=== PATIENT | male | born 1970 | race Caucasian/White ===

== ENCOUNTER 2017-10-13 13:59 | Inpatient (IN) ==
[2017-10-13] MEDS ORDERED: Nitroglycerin 1,000 MCG/10 ML VIAL IV ONE (15:55)
[2017-10-13] MEDS ORDERED: *HR* Heparin 10,000 UNIT/10 ML VIAL ONE (15:55)
[2017-10-13] MEDS ORDERED: Heparin 1,000 UNITS/500 mL 500 ML ONE (15:55)
[2017-10-13] MEDS ORDERED: 0.9 % Sodium Chloride 1,000 ML ONE ×2 (15:55→15:57)
--- NOTE | 2017-10-13 15:59 | Cardiology Consult Note ---
Date of Encounter: 10/13/17 Time of Encounter: 15:55 Assessment and Plan (1) NSTEMI (non-ST elevated myocardial infarction) Current Visit: No Status: Acute History, ECG, troponin measurements consistent with a NSTEMI. Patient placed on ACS therapy, including aspirin, heparin drip, Plavix 600 mg PO x1 nitroglycerin at outside ER. Continue ACS therapy. Start Risks, benefits, and alternatives to a cardiac catheterization discussed. Patient voiced understanding and wishes to proceed. Check TTE. Risk factor modification emphasized, especially complete tobacco cessation. Further recommendations to follow. Discussion w patient/family: The assessment and plan as outlined above was discussed with the patient and/or family members who expressed understanding and agreement. All questions were answered. Thank you for involving us in the care of your patient. Please call with any questions. History of Present Illness Consult date: 10/13/17 Requesting physician: Hailey Valencia Consult reason: NSTEMI Chief complaint: Chest discomfort History of present illness: 47-year-old male who reports intermittent chest discomfort for the past one week. Describes episodes lasting anywhere from 30 minutes to one hour. Symptoms resolved with rest. At 1:00 this morning, patient reports sudden intense chest pressure. Symptoms were persistent, unrelenting. He went to local ER. ECG demonstrates ST-T wave changes suggestive of inferior ischemia. Troponin elevated, 4.36. Prior to medical therapy, 8 out of 10 chest pain reported. Patient now reports 2 out of 10 chest discomfort. Past Med Surg Social Fam HX - Past Medical History Medical history: no medical history Psychiatric history: no psych history - Social History Smoking Status: Current every day smoker Smokeless Tobacco Status: No Alcohol use: occasionally Drug use: none Medications and Allergies 3 Allergy/AdvReac Type Severity Reaction Status Date / Time No Known Allergies Allergy Verified 10/13/17 12:07 All Systems Review: A 10-system review of systems was performed and is negative for pertinent findings except as documented above in the HPI. - Cardiovascular Cardiovascular: as per HPI, chest pain at rest, chest pain with exertion, dyspnea at rest Physical Examination General: Conversant, No Apparent Distress HEENT: Atraumatic, Normocephaly, Mucus Membranes Moist Neck: No JVD, Normal carotid pulses Cardiac: Reg Rate and Rhythm, Normal S1 and S2, No Murmur Lungs: Normal Breath Sounds, No Wheeze, Rales, Rhonchi Neuro: Alert and responsive, No focal deficits noted Abdomen: Soft, Non-Tender Skin: No rashes noted on visualized skin Musculoskeletal: No Chest Wall Tenderness Extremities: No Clubbing, No Cyanosis, No Edema Results - EKG Interpretation EKG results cardiology: personally reviewed Consult Discharge Plan - Plan Referrals: NONE,PCP [Primary Care Provider] -
--- NOTE | 2017-10-13 16:01 | Pre-Sedation Evaluation ---
Pre-sedation evaluation - Pre-sedation checklist Date of procedure: 10/13/17 Procedure: C H&P (including ROS) documented in medical record: Yes Previous reaction to sedatives/anesthetics: No Dietary Status: NPO after Midnight Airway Assessment: Patient can open mouth completely, TMJ function normal, Micrognathia (under-bite, receding chin) absent, Neck with adequate range of motion Dentition: No loose teeth or bridges Possible difficult airway: No ASA Classification *see protocol: CLASS II-Mild systemic disease Plan of Care: Pt appropriate candidate for procedure/moderate/conscious sedation , Risks/benefits of procedure/sedation discussed w/ patient/family
[2017-10-13] MEDS ORDERED: *HR* Heparin 5,000 UNIT/ML VIAL IVP PRN ×2 (16:13)
[2017-10-13] MEDS ORDERED: *HR* Heparin 5,000 UNIT/ML VIAL IVP ONE (16:13)
[2017-10-13] MEDS ORDERED: Heparin 25,000 UNIT/500 ML D5W 25,000 UNIT/500 ML BAG IVC SCH (16:15)
[2017-10-13] MEDS ORDERED: *HR* FentaNYL (PF) 100 MCG/2 ML VIAL ONE (16:32)
[2017-10-13] MEDS ORDERED: *HR* Midazolam HCl 2 MG/2 ML VIAL ONE (16:32)
[2017-10-13] MEDS ORDERED: Naloxone 0.4 MG/ML INJ IVP PRN (16:35)
--- NOTE | 2017-10-13 16:45 | Internal Med History&Physical ---
Date of Encounter: 10/13/17 Time of Encounter: 16:42 Assessment and Plan (1) NSTEMI (non-ST elevated myocardial infarction) Current visit: No Status: Acute Cardiology. Started on. Aspirin, Plavix, statin, and beta lisa have all been started. Echo pending. Plus/minus Left heart catheterization per cardiology. Continue telemetry. (2) Elevated d-dimer Current visit: Yes Status: Acute Likely secondary to cardiac etiology. If his cardiac workup comes back unremarkable, we will have to check a CTA of chest to rule out PE. Patient is not hypoxic and is not requiring oxygen. (3) Febrile illness Current visit: Yes Status: Acute Check viral respiratory panel. Chest x-ray with no infiltrates. Check urinalysis. Influenza is negative. We will check blood cultures. (4) Pulmonary nodules Current visit: Yes Status: Acute We will need to have a dedicated CT once acute issues resolve. This can possibly be done as an outpatient. (5) DVT prophylaxis Current visit: Yes Status: Acute Heparin drip Internal Medicine - H&P: HPI Chief complaint: Chest pain Admitted From: Direct Admit Plans for Post Hospital Care: Home History of present illness: Mr. Pereira is a 47 year old male with no past medical history who had presented from [facility] with complaints of chest pain. Apparently the patient has been dealing with some cough, congestion, and fevers for the last 5 days or so. Last night he experienced chest pain that was substernal with no radiation. He related that as 7 out of 10 in intensity. In tab 1 to [facility] where his workup showed elevated troponins at 4.36. CK was 966. Rest of his workup was mostly unremarkable other than elevated d-dimer's. His chest x-ray was negative. He was checked for the flu antigen was negative. EKGs are some ST and T-wave changes in the inferior leads. Cardiology was consulted and the patient was started on a heparin drip upon arrival. Patient currently denies any fever chills nausea vomiting shortness of breath chest pain and abdominal pain uterine symptoms or neurological symptoms. His chest pain had resolved with sublingual nitroglycerin as well as morphine at the outlying facility. Past Med Surg Social Fam HX - Past Medical History Medical history: no medical history Psychiatric history: no psych history - Past Surgical History Surgical History: no surgical history - Social History Smoking Status: Current every day smoker Smokeless Tobacco Status: No Alcohol use: occasionally Drug use: none - Family History Father Living Status: Age at : 66 Hx Family Cardiac Disorders: Yes Hx Family Cancer: Yes Hx Family Endocrine Disorder: Yes Internal Medicine - H&P: Meds 3 Allergy/AdvReac Type Severity Reaction Status Date / Time No Known Allergies Allergy Verified 10/13/17 12:07 All Systems PM: A 10-system review of systems was performed and is negative for pertinent findings except as documented above in the HPI. Review of systems: All systems reviewed are negative except for what is mentioned in history of present illness - Constitutional Vitals: Temp Pulse Resp BP 98.3 F 72 14 120/75 10/13/17 16:05 10/13/17 16:05 10/13/17 16:05 10/13/17 16:05 Exam: GEN: NAD HEENT: AT, NC, No cyanosis, oral mucosa is moist, No JVD Lymphatics: No lymphadenoapthy Eyes: Extrocular muscles intact, anicteric CVS:RRR. S1, S2, No m/r/g RESP: CTAB ABD: Soft, NT, ND, +BS EXT: No edema, No rashes, 2+ DP NEURO: Nonfocal, CN II-XII intact, No focal motor or sensory deficits Psych: Cooperative, Not anxious or depressed
[2017-10-13] MEDS ORDERED: Ondansetron 4 MG/2 ML VIAL IVP PRN (17:15)
[2017-10-13] MEDS ORDERED: Nitroglycerin 0.4 MG TAB.SUBL SL PRN (17:15)
--- NOTE | 2017-10-13 17:19 | Invasive Diagnostic Lab Proc ---
Name: Milton Pereira Date of Study: 10/13/2017 Date: 1970 Ht: 70.0in Medical Record#: [id number] Age: 47 Wt: 165.35lb Gender: Male BSA: 1.93 Order #: [id number] BMI: 23.72 Physicians Procedure Physician: Kandi Sterling MD, [facility] Referring MD: Referring MD: Staff Name Position Time In [facility], [facility] RT (R) Scrub 04:31 PM Mariela Powell RN Clinical Staff Anesthesiologist 04:31 PM Michelle Loco RT (R) Monitor 04:31 PM Indications Indication Non-Stemi Procedures Performed Procedure L HRT ARTERY/VENTRICLE ANGIO PRQ CARD DESIREE STENT W/ANGIO 1 VSL Pre-Procedure Checklist Informed consent is complete signed and on chart. H&P is on chart. ID band is on and ID verified with patient. Patient NPO for procedure The procedure was described for the patient and questions were answered. Blood Pressure: 130/80 ECG is on chart. Rhythm: NSR Plan of Care Patient will tolerate the procedure without complications. Adequate level of comfort will be maintained. Hemodynamics will remain stable Patient will recover from procedure without complications. Respiratory function will be maintained. Cardiac rhythm will remain stable. Patient temperature will be maintained. Patient and/or family have verbalized understanding of the procedure. Patient Education Chief Complaint/Reason for Test: Cardiac Cath Developmental Category: Adult (18-64 years) Developmentally Appropriate for Age: Yes Learning Barriers: None Education Needs: Procedure Education Method: Verbal Information Taught: Cardiac Cath Educational Evaluation: Able to repeat information Intravenous Access Time IV Size Location DC'd Fluid/Drip Rate Units RN 04:28 PM 18g 1 09/17" Patent On Arrival Rt Antecubital 0.9NaCl 25 ml/hr Allergies No Known Allergies Vital Signs Time BP (mmHg) HR (bpm) O2 Sat. RR (bpm) LOC 04:29 PM 130 / 80 78 98 % 20 5 = Fully awake and oriented or at pre-proc level 04:36 PM / % 4 = Oriented but drowsy 04:36 PM / % 4 = Oriented but drowsy 04:31 PM 130 / 80 65 98 % 27 04:35 PM 133 / 87 77 95 % 14 04:40 PM 119 / 80 69 97 % 15 04:45 PM 118 / 75 71 95 % 30 04:50 PM 120 / 83 81 95 % 29 04:55 PM 112 / 74 67 95 % 15 05:00 PM 90 / 44 66 94 % 24 05:01 PM 94 / 54 75 93 % 27 05:05 PM 105 / 59 66 94 % 17 04:51 PM / % 4 = Oriented but drowsy Procedural Medications Time Medication Dose Units Method Given By 04:34 PM Oxygen 2 L/min nasal cannula Mariela Powell RN 04:34 PM Versed 2 mg Intravenous Mariela Powell RN 04:34 PM Fentanyl 50 mcg Intravenous Mariela Powell RN 04:41 PM Lidocaine 2% 10 ml Subcutaneous Kandi Sterling MD, [facility] 04:48 PM Angiomax 0.75mg/kg bolus: 11 ml Intravenous Mariela Powell RN 04:48 PM Angiomax 1.75mg/kg/hr: 26 ml Intravenous Mariela Powell RN 04:58 PM Nitroglycerin 200 mcg Intracoronary Kandi Sterling MD, [facility] ASA Classification: CLASS II- Mild systemic disease (i.e. well-controlled diabetes, hypertension, asthma, cigarette smoking) Edward Score Preprocedure Postprocedure Activity 2- Moves 4 extremities sustained head lift Activity 2- Moves 4 extremities sustained head lift Circulation 2- SBP +/= 20 points of pre-anesthetic level Circulation 2- SBP +/= 20 points of pre-anesthetic level Consciousness 2- Awake and alert oriented x 3 Consciousness 2- Awake and alert oriented x 3 O2 Saturation 2- Able to maintain O2 satruation of 92% on room air O2 Saturation 2- Able to maintain O2 satruation of 92% on room air Respiratory 2- Able to deep breathe and cough well Respiratory 2- Able to deep breathe and cough well Total Score 10 Total Score 10 Contrast Agent: Isovue Diagnostic Contrast: 103 ml Total Contrast: 103 ml Fluoro Dose: 323 mGy Procedure Log Time Note Enter By 04:29 PM CathStat 04:29 PM Vitals capture started with the following parameters, Patient=Adult, Interval=5 min, Initial Hfroxvmn=257 mmHg, Deflation Rate=5 mmHg, Cuff placed on Right Arm 04:30 PM Recorded ECG: HR=66 Condition=Condition 1 04:31 PM [facility] geochemical laboratory technician [email or web address] PM HR=65 bpm, SWJB=547/80 mmhg, SpO2=98.0 %, Resp=27 B/min, Comment=NSR 04:31 PM Marleni Erickson RT (R) Position: Scrub Time in: 16:31 [email or web address] 04:31 PM Mariela Powell RN Position: Clinical Staff Anesthesiologist Time in: 16:31 [email or web address] 04:31 PM Michelle Loco RT (R) Position: Monitor Time in: 16:31 [email or web address] 04:33 PM Patient charges- Angio tray pack, Navilyst 3mm J, Pulse Oximetry and ACIST tubing and transducer [email or web address] 04:33 PM Case Delayed no [email or web address] 04:33 PM Hair removed from procedure site in holding area using clippers. Bilateral groin prepped with Chloraprep by Mariela Powell RN, safety strap applied then patient was draped. Skin intact. [email or web address] 04:33 PM Physician arrived 16:33 [email or web address] 04:33 PM ASA Class CLASS II- Mild systemic disease (i.e. well-controlled diabetes, hypertension, asthma, cigarette smoking) [email or web address] 04:33 PM Meet and greet completed [email or web address] 04:33 PM Sign in performed according to hospital policy. [email or web address] 04:34 PM Procedure start 16:33 [email or web address] 04:34 PM Time: 16:34 Oxygen on at 2 L/min per nasal cannula by Mariela Powell RN [email or web address] 04:34 PM Time: 16:34 Versed 2 mg Intravenous Given by Mariela Powell RN [email or web address] 04:34 PM Time: 16:34 Fentanyl 50 mcg Intravenous Given by Mariela Powell RN [email or web address] 04:35 PM HR=77 bpm, BZYK=377/87 mmhg, SpO2=95.0 %, Resp=14 B/min, Comment=NSR 04:36 PM Time: 16:36 Patient comfortable and pain free: Yes [email or web address] 04:36 PM Time: 16:36LOC: 4 = Oriented but drowsy [email or web address] 04:37 PM Pressure channel 1 zeroed. 04:40 PM HR=69 bpm, DBWT=173/80 mmhg, SpO2=97.0 %, Resp=15 B/min, Comment=NSR 04:40 PM Time out performed according to hospital policy [email or web address] 04:41 PM Time: 16:41 10 ml Lidocaine 2% to right groin Subcutaneous Given by Kandi Sterling MD, [facility] [email or web address] 04:42 PM Access obtained by percutaneous puncture. 5Fr 10cm Terumo [place] sheath placed in right Femoral artery. [id number] [email or web address] 04:42 PM 0.035 145cm Navilyst 3mmJ wire [id number] [email or web address] 04:42 PM 5Fr FL 4 catheter inserted over the wire DN [email or web address] 04:43 PM LCA angiography performed in multiple views. [email or web address] 04:44 PM Recorded Pressure: Ao, HR=73, Condition=Condition 1 (Aorta) Ao 113/84/98 04:45 PM Lesion found in Proximal Circumflex. Pre Stenosis: 100 Pre TORREY Flow: 0: No Flow/No perfusion [email or web address] 04:45 PM HR=71 bpm, LOGI=122/75 mmhg, SpO2=95.0 %, Resp=30 B/min, Comment=NSR 04:45 PM Catheter removed [email or web address] 04:45 PM 5Fr FR 4 catheter inserted over the wire DN [email or web address] 04:46 PM RCA angiography performed in multiple views. [email or web address] 04:46 PM Recorded Pressure: Ao, HR=69, Condition=Condition 1 (Aorta) Ao 77/57/67 04:46 PM Catheter removed [email or web address] 04:47 PM Sheath exchanged for a 6 Fr 11 cm Cordis Elizabeth sheath [id number] [email or web address] 04:47 PM Inflation device was opened. [email or web address] 04:47 PM 6Fr XB LAD 3.5 [place] Bright-Tip guide catheter was used to cannulate the PCI vessel successfully. reused? No [email or web address] 04:48 PM .014 Prowater 180cm guide wire across target lesion- successful. reused? No [email or web address] 04:48 PM Time: 16:48 Angiomax 0.75mg/kg bolus: 11 ml Intravenous Given by Mariela Powell RN Chappell pump [email or web address] 04:48 PM Time: 16:48 Angiomax 1.75mg/kg/hr: 26 ml Intravenous Given by Mariela Powell RN Chappell pump [email or web address] 04:49 PM Recorded Pressure: Ao, HR=82, Condition=Condition 1 (Aorta) Ao 124/81/100 04:50 PM HR=81 bpm, ZMMH=898/83 mmhg, SpO2=95.0 %, Resp=29 B/min, Comment=NSR 04:51 PM Time: 16:36 Patient comfortable and pain free: Yes [email or web address] 04:51 PM Time: 16:36LOC: 4 = Oriented but drowsy [email or web address] 04:51 PM 2.0 mm x 12 mm Emerge Monorail balloon across target lesion- successful. reused? No [email or web address] 04:52 PM Balloon inflated @ 10 ubaldo for 20 seconds [email or web address] 04:52 PM Balloon inflated @ 10 ubaldo for 20 seconds [email or web address] 04:54 PM Balloon inflated @ 10 ubaldo for 20 seconds [email or web address] 04:54 PM Recorded Pressure: Ao, HR=69, Condition=Condition 1 (Aorta) Ao 107/78/92 04:54 PM Balloon catheter removed intact. [email or web address] 04:55 PM HR=67 bpm, DXFT=197/74 mmhg, SpO2=95.0 %, Resp=15 B/min, Comment=NSR 04:55 PM 2.75mm x 32mm Synergy drug-eluting stent across target lesion- successful Lot #[id number] [email or web address] 04:56 PM Stent deployed @ 12 ubaldo for 30 seconds [email or web address] 04:58 PM Stent delivery system removed intact. [email or web address] 04:58 PM Time: 16:58 Nitroglycerin 200 mcg Intracoronary Given by Kandi Sterling MD, [facility] [email or web address] 04:59 PM Guide wire removed intact. [email or web address] 04:59 PM Guide catheter removed intact. [email or web address] 04:59 PM 5Fr Pigtail catheter inserted over the wire [facility] [email or web address] 04:59 PM Catheter selectively placed in left ventricle [email or web address] 04:59 PM Bolus angiogram of left Ventricle complete: 10 ml/sec for a total of 20 mls [email or web address] 05:00 PM HR=66 bpm, NIBP=90/44 mmhg, SpO2=94.0 %, Resp=24 B/min, Comment=NSR 05:01 PM Pressure channel 1 zeroed. 05:01 PM Recorded Pressure: LV, HR=68, Condition=Condition 1 (Left Ventricle) LV 92/0/10 05:01 PM NIBP STAT measurement started. 05:01 PM Recorded Pressure: LV, Ao, HR=70, Condition=Condition 1 (Left Ventricle) LV 70/6/12, (Aorta) Ao ?/?/? 05:01 PM HR=75 bpm, NIBP=94/54 mmhg, SpO2=93.0 %, Resp=27 B/min, Comment=NSR 05:01 PM Recorded Pressure: Ao, HR=67, Condition=Condition 1 (Aorta) Ao 71/54/63 05:02 PM Catheter removed [email or web address] 05:02 PM Bolus angiogram of right Femoral complete: 4 ml/sec for a total of 7 mls [email or web address] 05:03 PM Patient already loaded on Plavix. [email or web address] 05:05 PM Procedure completed at 17:05 [email or web address] 05:05 PM HR=66 bpm, PFHP=764/59 mmhg, SpO2=94.0 %, Resp=17 B/min, Comment=NSR 05:05 PM Sign out completed: Radiation Dose 323.24 mGy Fluoro Time: 4.4 Isovue 370 - 200ml contrast 103 ml given by Kandi Sterling MD, FACC. Complications: NoneCardiac Rehab Consult needed: YesConfirmed administered medications: Yes [email or web address] 05:07 PM Time: 16:51LOC: 4 = Oriented but drowsy [email or web address] 05:07 PM Time: 16:51 Patient comfortable and pain free: Yes [email or web address] 05:11 PM Isovue 370 - 200ml,1 Bottle(s) used. [email or web address] 05:11 PM Sheath left in place to be pulled on floor/holding areaV+Pad [email or web address] 05:11 PM Estimated Blood Loss: minimal [email or web address] 05:11 PM Post ECG NSR [email or web address] 05:11 PM Post Blood Pressure 105/59 [email or web address] 05:11 PM 17:11 Post Pulses Bilateral DP & PT 2+ [email or web address] 05:11 PM Information taught Cardiac Cath and PCI [email or web address] 05:12 PM Education needs Procedure, Plan of Care, and Disease Process [email or web address] 05:12 PM Learning barriers :None [email or web address] 05:12 PM Education Methods Verbal [email or web address] 05:12 PM Education evaluation Able to repeat information [email or web address] 05:12 PM Site status No bleeding/hematoma - Rt Groin as reported by Sites, Marleni RT (R) at 17:12 [email or web address] 05:12 PM Opsite applied [email or web address] 05:13 PM Report given to Missy NOEL Pt taken to 2N Room #2. 17:13 [email or web address] 05:13 PM Delay to floor No [email or web address] 05:13 PM Family placed in not available. [email or web address] 05:13 PM Complications: None [email or web address] 05:13 PM Fluoro Time: 4.4 [email or web address] 05:13 PM Isovue 370 - 200ml contrast 103 ml given by Kandi Sterling MD, [facility]. [email or web address] 05:13 PM Radiation Dose 323.24 mGy [email or web address] 05:13 PM Patient out of room: 17:13 [email or web address] Complications Complication None None Hemodynamics Pressures Site Systolic/A Wave Diastolic/V Wave Mean AO 113 84 98 AO 77 57 67 AO 124 81 100 AO 107 78 92 LV 92 0 10 LV 70 6 12 AO AO 71 54 63 Post Procedure Information Blood Pressure: 105/59 mmHg Rhythm: NSR Post procedural instructions were not given Site Checks Time Location Status Staff Sheath In? Note 05:12 PM Rt Groin No bleeding/hematoma Sites, Marleni RT (R) Pulses Time Site Pre-Procedure Post-Procedure Note 10/13/2017 4:28:00 PM Bilateral DP & PT 2+ 2 5:11:00 PM Bilateral DP & PT 2+ Updated by Michelle Loco RT(R) on 10/13/2017 5:14:10 PM electronically signed on 10/13/2017 5:14:38 PM with status of Final
[2017-10-13] MEDS: 0.9 % Sodium Chloride 1,000 ML IVC SCH ×2 (18:35→23:50)
[2017-10-13 19:09] LABS: Hematocrit 41.4 % (37.5-50.1); Hemoglobin 13.7 g/dL (12.9-16.9); Mean Corpuscular HGB Conc 33.1 g/dL (31.6-35.5); Mean Corpuscular Hemoglobin 31.3 pg (28.0-33.3); Mean Corpuscular Volume 94.5 fL (83.0-100.0); Mean Platelet Volume 10.3 fL (9.4-12.4); Platelet Count 231 K/mcL (140-400); Red Blood Count 4.38 M/mcL (4.19-5.50); Red Cell Distribution Width 13.6 % (11.5-14.5)
[2017-10-13 19:15] LABS: INR 1.3; Prothrombin Time 14.1 Seconds (9.4-12.1)
[2017-10-13 19:16] LABS: Hemoglobin A1C 5.2 %
[2017-10-13 19:17] LABS: Activated Partial Thrombo Time 58.5 Seconds (26.0-36.0)
[2017-10-13 19:43] LABS: Chol/HDL Ratio 5.4 (0-4.9)
[2017-10-14 01:07] LABS: Basophils % 0.2 %; Eosinophils % 0.4 %; Hematocrit 37.8 % (37.5-50.1); Hemoglobin 12.6 g/dL (12.9-16.9); Immature Granulocytes % 0.5 % (0-4); Lymphocytes % 21.8 %; Mean Corpuscular HGB Conc 33.3 g/dL (31.6-35.5); Mean Corpuscular Hemoglobin 31.4 pg (28.0-33.3); Mean Corpuscular Volume 94.3 fL (83.0-100.0); Mean Platelet Volume 10.3 fL (9.4-12.4); Monocytes % 9.7 %; Platelet Count 192 K/mcL (140-400); Red Blood Count 4.01 M/mcL (4.19-5.50); Red Cell Distribution Width 13.8 % (11.5-14.5); Segmented Neutrophils % 67.4 %
[2017-10-14 01:08] LABS: Lymphocytes # 1.9 K/mcL (0.6-4.6); Monocytes # 0.8 K/mcL (0.0-1.3); Neutrophils # 5.7 K/mcL (1.6-8.9)
[2017-10-14 02:22] LABS: BUN/Creatinine Ratio 14 (6-26); Blood Urea Nitrogen 10 mg/dL (6-20); Calcium 8.3 mg/dL (8.6-10.3); Carbon Dioxide 25 mEq/L (23-29); Chloride 109 mEq/L (98-107); Glucose 129 mg/dL (70-105); Magnesium 2.1 mg/dL (1.6-2.6); Osmolality,Calculated 283 (280-300); Potassium 4.2 mEq/L (3.5-5.1); Sodium 136 mEq/L (136-145); eGFR For African Americans > 60 (> 60); eGFR For Non-African Americans > 60 (> 60)
[2017-10-14 05:24] LABS: Bilirubin,Urine Negative (Negative); Blood,Urine Negative (Negative); Clarity,Urine Clear (Clear); Color,Urine Yellow (Yellow); Glucose,Urine (UA) Normal (Normal); Ketones,Urine Negative (Negative); Leukocyte Esterase,Urine Negative (Negative); Nitrite,Urine Negative (Negative); Protein,Urine Negative (Neg-Trace); Specific Gravity,Urine > 1.030 (1.010-1.025); Urobilinogen,Urine Normal (Normal)
[2017-10-14] MEDS ORDERED: Metoprolol XL (24 HR) Succ 25 MG TAB.ER.24H PO SCH ×2 (09:00)
[2017-10-14] MEDS ORDERED: Aspirin 81 MG TAB.CHEW PO SCH (09:00)
--- NOTE | 2017-10-14 09:19 | Cardiology Progress Note ---
Date of Encounter: 10/14/17 Time of Encounter: 09:16 Assessment and Plan (1) NSTEMI (non-ST elevated myocardial infarction) Current Visit: Yes Status: Acute Troponins 4.36, >73 x 2. C yesterday revealed acute [place] due to acute thrombotic occlusion of proximal Cx. Double vessel coronary artery disease. The left ventricle is normal and has normal contractility EF 55%. Patient had successful PTCA/Drug-Eluting Stent placement in the proximal Circ. LMCA 15% stenosis, 25% pLAD, 30% mLAD, 50% pRCA mRCA and dRCA stenosis. Pt denies chest pain or dyspnea overnight. DAPT (ASA and Plavix) uninterrupted x 1 year. Pt verbalizes understanding. Continue Statin. BP will currently not tolerate BB or ACEi. Re-evaluate as outpt if BP will tolerate low dose BB. Right femoral access site healing well. No bleeding or hematoma. Mild ecchymosis noted. Restrictions discussed. Lifestyle modification discussed. Echo ordered, but not yet completed. Cardiac rehab ordered. Cardiology signing off. Reconsult PRN. Will coordinate outpt follow-up in 1 week. (2) CAD (coronary artery disease) Current Visit: Yes Status: Acute As above, s/p PCI. ASA, Plavix, Statin. BP currently will not tolerate BB or ACEi. Qualifiers: Coronary Disease-Associated Artery/Lesion type: [place] artery [place] vs. transplanted heart: [place] heart Associated angina: angina presence unspecified Qualified Code(s): I25.10 - Atherosclerotic heart disease of [place] coronary artery without angina pectoris (3) Hypotension Current Visit: Yes Status: Acute BP 80s-low 100s/60s. Asymptomatic, denies dizziness or lightheadedness. Unsure if acute or chronic, has never monitored BP. BP will currently not tolerate BB. Re-evaluate as outpt if BP will tolerate. Qualifiers: Hypotension type: unspecified hypotension type Qualified Code(s): I95.9 - Hypotension, unspecified (4) Tobacco abuse Current Visit: Yes Status: Acute Smoking cessation counseling given. Discussion w patient/family: The assessment and plan as outlined above was discussed with the patient and/or family members who expressed understanding and agreement. All questions were answered. Thank you for involving us in the care of your patient. Please call with any questions. I will discuss all the above with Dr. Hillman and make changes as necessary. Subjective Principal diagnosis: NSTEMI Interval history: NSTEMI, troponins 4.06, >73 x 2. Underwent LHC yesterday, thrombotic occlusion of pLCx culprit lesion for acute AZ. Double vessel coronary artery disease. The left ventricle is normal and has normal contractility EF 55% Patient had successful PTCA/Drug-Eluting Stent placement in the proximal Circ. Pt denies chest pain overnight, denies dyspnea. Denies any acute cardiac complaints this AM. Objective Vital Signs, Last 4 Hours Temp Pulse Resp BP Pulse Ox 10/14/17 09:15 100 10/14/17 09:08 93 10/14/17 09:05 84 14 101/71 95 10/14/17 07:34 98.6 F 73 16 94/62 94 Vital Signs Temp Pulse Pulse Resp BP Pulse Ox 10/14/17 09:15 100 10/14/17 09:08 93 10/14/17 09:05 84 14 101/71 95 10/14/17 07:34 98.6 F 73 16 94/62 94 10/14/17 04:20 74 10/14/17 03:50 98.6 F 82 15 91/65 97 10/13/17 23:50 98.6 F 82 16 90/66 96 10/13/17 23:45 98.6 F 82 16 90/66 96 10/13/17 20:09 97.1 F L 67 16 91/66 98 10/13/17 19:45 62 64 89/54 10/13/17 18:53 64 10/13/17 18:52 98.1 F 70 14 92/61 95 10/13/17 18:30 66 18 88/61 97 10/13/17 18:29 67 10/13/17 18:27 62 14 93/65 98 10/13/17 18:13 68 10/13/17 18:00 76 10/13/17 17:45 63 10/13/17 17:40 63 16 93/64 96 10/13/17 17:38 62 10/13/17 17:35 68 14 102/67 97 10/13/17 17:32 95 10/13/17 17:29 71 10/13/17 17:25 69 18 107/73 10/13/17 17:19 97.8 F 63 16 103/63 96 10/13/17 16:05 98.3 F 72 14 120/75 Intake and Output 10/13/17 10/14/17 10/14/17 23:59 07:59 15:59 Intake Total 1000 / 1000 300 / 300 120 / 120 Output Total 0 / 0 Balance 1000 / 1000 300 / 300 120 / 120 Intake: IV Fluids 1000 / 1000 0.9 % Sodium Chloride 1,000 ML 1000 / 1000 @ 100 mls/hr IVC .Q10H AMANDA Rx#: [id number] Oral 0 / 0 300 / 300 120 / 120 Output: Urine 0 / 0 Other: Meal Breakfast Percent of Meal Consumed 100% # Voids 1 Weight 73.5 kg 79.8 kg Patient Weight 10/14/17 23:59 Weight 79.8 kg General: Conversant, No Apparent Distress HEENT: Atraumatic, Normocephaly, Mucus Membranes Moist Neck: No JVD, Normal carotid pulses Cardiac: Reg Rate and Rhythm, Normal S1 and S2, No Murmur Lungs: Normal Breath Sounds, No Wheeze, Rales, Rhonchi Neuro: Alert and responsive, No focal deficits noted Abdomen: Soft, Non-Tender Skin: Other (right femoral access site healing well. No bleeding or hematoma. Mild ecchymosis noted.) Musculoskeletal: No Chest Wall Tenderness Extremities: No Clubbing, No Cyanosis, No Edema, Normal Pulses Results 10/14/17 00:58 10/14/17 00:58 Lab Results 10/13/17 10/13/17 10/13/17 18:56 18:56 18:56 WBC 10.8 Hgb 13.7 D Hct 41.4 Plt Count 231 INR 1.3 APTT 58.5 H D Sodium Potassium Chloride Carbon Dioxide BUN Creatinine Glucose Calcium Magnesium Troponin I > 73.00 H* TSH 10/13/17 10/14/17 10/14/17 18:56 00:58 00:58 WBC 8.5 Hgb 12.6 L Hct 37.8 Plt Count 192 INR APTT Sodium 136 Potassium 4.2 Chloride 109 H Carbon Dioxide 25 BUN 10 Creatinine 0.73 Glucose 129 H Calcium 8.3 L Magnesium 2.1 Troponin I TSH 0.892 10/14/17 00:58 WBC Hgb Hct Plt Count INR APTT Sodium Potassium Chloride Carbon Dioxide BUN Creatinine Glucose Calcium Magnesium Troponin I > 73.00 H* TSH Short CBC 10/14/17 10/13/17 Range/Units 00:58 18:56 WBC 8.5 10.8 (4.3-11.1) K/mcL Hgb 12.6 L 13.7 D (12.9-16.9) g/dL Hct 37.8 41.4 (37.5-50.1) % Plt Count 192 231 (140-400) K/mcL Neutrophils # 5.7 (1.6-8.9) K/mcL BMP 10/14/17 Range/Units 00:58 Sodium 136 (136-145) mEq/L Potassium 4.2 (3.5-5.1) mEq/L Chloride 109 H (98-107) mEq/L Carbon Dioxide 25 (23-29) mEq/L BUN 10 (6-20) mg/dL Creatinine 0.73 (0.70-1.30) mg/dL Glucose 129 H (70-105) mg/dL Calcium 8.3 L (8.6-10.3) mg/dL Cardiac Enzymes 10/14/17 10/13/17 Range/Units 00:58 18:56 Troponin I > 73.00 H* > 73.00 H* (< 0.04) ng/mL Urine 10/14/17 Range/Units 04:25 Urine Color Yellow (Yellow) Urine Clarity Clear (Clear) Urine pH 6.0 (5.0-8.0) pH Units Ur Specific [place] > 1.030 H (1.010-1.025) Urine Protein Negative (Neg-Trace) mg/dL Urine Glucose (UA) Normal (Normal) mg/dL Active Medications Acetaminophen (Tylenol) 500 mg PO Q6HR PRN PRN Reason: Fever Stop: 04/14/18 16:45 Aspirin (Aspirin) 81 mg PO DAILY AMANDA Stop: 04/15/18 09:01 Last Admin: 10/14/17 08:58 Dose: 81 mg Atorvastatin Calcium (Lipitor) 80 mg PO HS AMANDA Stop: 04/15/18 21:01 Clopidogrel Bisulfate (Plavix) 75 mg PO DAILY AMANDA Stop: 04/15/18 09:01 Last Admin: 10/14/17 08:58 Dose: 75 mg Sodium Chloride (0.9 % Sodium Chloride) 1,000 mls @ 100 mls/hr IVC .Q10H AMANDA Stop: 04/14/18 17:16 Last Admin: 10/13/17 23:50 Dose: 100 mls/hr Lisinopril (Zestril) 2.5 mg PO DAILY AMANDA PRN Reason: Protocol Stop: 04/15/18 09:01 Last Admin: 10/14/17 08:58 Dose: Not Given Metoprolol Succinate (Toprol Xl) 25 mg PO DAILY [facility] Stop: 04/15/18 09:01 Last Admin: 10/14/17 08:58 Dose: Not Given Naloxone HCl (Narcan) 0.4 mg IVP Q2MIN PRN PRN Reason: SEE COMMENTS Stop: 04/14/18 16:36 Nitroglycerin (Nitroglycerin) 0.4 mg SL Q5MIN PRN PRN Reason: Chest Pain Stop: 04/14/18 17:16 Ondansetron HCl (Zofran) 4 mg IVP Q6HR PRN; Protocol PRN Reason: Nausea And Vomiting Stop: 04/14/18 17:16 - Imaging and Cardiology Echo: pending Cardiac cath: report reviewed - EKG Interpretation EKG results cardiology: other (12 hr tele AVG HR 71, SR, no significant pauses or arrhythmias) Consult Discharge Plan - Plan Additional Instructions: RISK FACTORS: STOP SMOKING: If you smoke, STOP. Smoking or tobacco use significantly increases your risk of heart disease because nicotine causes the arteries to narrow or constrict. It also causes fats to stick to the artery. Your chances of having a heart attack are greatly increased if you continue to smoke. For more information, call the education line for smoking cessation 6-511-KKYTPCR EAT A LOW FAT/CHOLESTEROL/SODIUM DIET: This diet may help reduce your chances of having a heart attack. LIFTING: Avoid lifting anything more than 10 pounds for 5-7 days Prior to straining, laughing, sneezing and/or coughing, apply manual pressure directly over insertion site. ACTIVITY: You may walk or climb stairs as tolerated You can resume sexual activity as tolerated In general, you are encouraged to engage in a minimum of 30 minutes or more of moderate intensity physical activity, such as brisk walking, daily or at least 3 -4 times weekly BATHING Do not submerge the site into water (bath tub, hot tub, swimming pool) for 1 week. This can be a source for infection into the blood stream. You may shower after 24 hours SITE CARE: After 24 hours, you may remove the dressing and leave the site open to air. Keep the site clean and dry. Clean gently and pat dry. You can expect bruising and tenderness that gradually resolve within a week or two. Return to work as instructed per your physician Resume driving as instructed per physician Keep all scheduled follow up appointments Resume medications as instructed IMPORTANT: If prescribed a Platelet Aggregation Inhibitor such as, Plavix, Brilinta or Effient: Duration of therapy is minimum one year These medications are often used in combination with Aspirin in prevention of future heart attacks Never discontinue unless consult with your Shook Machine Operator STROKE (CVA) Risk factors for a stroke are: Age, cigarette smoking, diabetes, excessive alcohol consumption, family history, high blood pressure, overweight, physical inactivity, prior stroke, heart attack, diagnosis of carotid artery stenosis or other artery disease. Warning signs: Sudden numbness or weakness of the face, arm or leg; especially on one side of the body, sudden confusion, trouble speaking or understanding, sudden trouble seeing in one or both eyes, sudden trouble walking, dizziness, loss of balance or coordination, sudden severe headache with no cause. Call 911 or go to the Emergency Room. CONGESTIVE HEART FAILURE: If you have been diagnosed with Congestive Heart Failure (CHF) and your symptoms return, make an appointment with your physician Weigh yourself daily. Notify your physician if you have a weight gain of two or more pounds in one day or five or more pounds in one week. If you experience any difficulty breathing, please call 911 BLEEDING: Although the risk of bleeding is minimal, it can happen. If you have any bleeding from the site, apply firm pressure above the puncture site for 10-15 minutes. If the bleeding does not stop, continue manual pressure and call 911 Contact your physician if: You develop a fever greater than 101 degrees Fahrenheit Your site becomes reddened or has any drainage You have an increase in pain or burning at the site or if a large knot forms at the site. If you experience chest pain, shortness of breath, dizziness, or extreme tiredness, stop the activity and rest. Please notify your physicians office if you experience any of these symptoms and they are not relieved by rest please call 911! Referrals: Deborah Gonzalez [Advanced Practice Nurse] - 10/26/17 1:30 pm (Please take with you the New patient packet that will come in the mail filled out to your appointment. Take picture ID, Ins cards, Copay of $125.00. If you can not make this appointment please call [phone] within 24 hours of your appointment.) Isael Anand MD [Partnered Physician] - (office will call you at home with your follow up appointment) NONE,PCP [Primary Care Provider] -
[2017-10-14] MEDS: 0.9 % Sodium Chloride 1,000 ML IVC SCH (10:06)
--- NOTE | 2017-10-14 10:33 | Discharge Summary ---
Date of Encounter: 10/14/17 Time of Encounter: 10:31 - Discharge Diagnosis (1) NSTEMI (non-ST elevated myocardial infarction) Priority: Primary Status: Inactive (2) Elevated d-dimer Priority: Primary Status: Acute (3) Febrile illness Priority: Primary Status: Acute (4) Pulmonary nodules Priority: Primary Status: Acute - Discharge Medications Prescriptions: Aspirin 81 mg PO DAILY #30 tab.chew Atorvastatin [Lipitor] 80 mg PO HS #30 tablet Clopidogrel [Plavix] 75 mg PO DAILY #30 tablet Home Medications: Aspirin 81 mg PO DAILY #30 tab.chew 10/14/17 [Rx] Atorvastatin [Lipitor] 80 mg PO HS #30 tablet 10/14/17 [Rx] Clopidogrel [Plavix] 75 mg PO DAILY #30 tablet 10/14/17 [Rx] Allergies/Adverse Reactions: 3 Allergy/AdvReac Type Severity Reaction Status Date / Time No Known Allergies Allergy Verified 10/14/17 09:19 Procedures/tests Complete & Pending: Procedures Performed prior 72 hours Category Date Time Status CT chest wo con [CT] Stat Cat Scan 10/14/17 10:28 Ordered Left Heart Cath [CL Cardiac Catheterization] [CL] Can Tester 10/13/17 16:10 Completed Routine ECG 12 lead ECG [ECG] AM 0600 Y 10/14/17 06:00 Ordered ECG 12 lead ECG [ECG] Stat Y 10/13/17 17:14 Completed EV echocardiogram Routine Y 10/14/17 16:10 Completed Date of admission: 10/13/17 15:29 Primary care physician: PCP NONE Consults: 10/13/17 17:14 Consult to Cardiac Rehabilitation-Phase1 [CONS] Routine Comment: Reason for Consult: post op PCI Call Completed: Yes 10/13/17 18:12 Consult to Tufting Machine Operator [CONS] Routine Reason for SW Consult: Patient is self-employed and will need Plavix therapy on discharge. 10/14/17 08:41 Consult to Cardiology [CONS] Routine Comment: Consulting Provider: Cardiology Lisa Reason for Consult: per hospitalist, NSTEMI Call Completed: Yes - Patient Status Disposition: Home, Self-Care Condition: Fair Overall status at discharge: patient is progressing back to baseline - Discharge Instructions Instructions: Myocardial Infarction (DC), Coronary Artery Disease (DC), Left Heart Catheterization (DC) Follow Up With: Deborah Gonzalez [Advanced Practice Nurse] - 10/26/17 1:30 pm (Please take with you the New patient packet that will come in the mail filled out to your appointment. Take picture ID, Ins cards, Copay of $125.00. If you can not make this appointment please call [phone] within 24 hours of your appointment.) Isael Anand MD [Partnered Physician] - (office will call you at home with your follow up appointment) NONE,PCP [Primary Care Provider] - Additional Instructions: RISK FACTORS: STOP SMOKING: If you smoke, STOP. Smoking or tobacco use significantly increases your risk of heart disease because nicotine causes the arteries to narrow or constrict. It also causes fats to stick to the artery. Your chances of having a heart attack are greatly increased if you continue to smoke. For more information, call the education line for smoking cessation 8-052-ETCLEXT EAT A LOW FAT/CHOLESTEROL/SODIUM DIET: This diet may help reduce your chances of having a heart attack. LIFTING: Avoid lifting anything more than 10 pounds for 5-7 days Prior to straining, laughing, sneezing and/or coughing, apply manual pressure directly over insertion site. ACTIVITY: You may walk or climb stairs as tolerated You can resume sexual activity as tolerated In general, you are encouraged to engage in a minimum of 30 minutes or more of moderate intensity physical activity, such as brisk walking, daily or at least 3 -4 times weekly BATHING Do not submerge the site into water (bath tub, hot tub, swimming pool) for 1 week. This can be a source for infection into the blood stream. You may shower after 24 hours SITE CARE: After 24 hours, you may remove the dressing and leave the site open to air. Keep the site clean and dry. Clean gently and pat dry. You can expect bruising and tenderness that gradually resolve within a week or two. Return to work as instructed per your physician Resume driving as instructed per physician Keep all scheduled follow up appointments Resume medications as instructed IMPORTANT: If prescribed a Platelet Aggregation Inhibitor such as, Plavix, Brilinta or Effient: Duration of therapy is minimum one year These medications are often used in combination with Aspirin in prevention of future heart attacks Never discontinue unless consult with your Nailhead Setter STROKE (CVA) Risk factors for a stroke are: Age, cigarette smoking, diabetes, excessive alcohol consumption, family history, high blood pressure, overweight, physical inactivity, prior stroke, heart attack, diagnosis of carotid artery stenosis or other artery disease. Warning signs: Sudden numbness or weakness of the face, arm or leg; especially on one side of the body, sudden confusion, trouble speaking or understanding, sudden trouble seeing in one or both eyes, sudden trouble walking, dizziness, loss of balance or coordination, sudden severe headache with no cause. Call 911 or go to the Emergency Room. CONGESTIVE HEART FAILURE: If you have been diagnosed with Congestive Heart Failure (CHF) and your symptoms return, make an appointment with your physician Weigh yourself daily. Notify your physician if you have a weight gain of two or more pounds in one day or five or more pounds in one week. If you experience any difficulty breathing, please call 911 BLEEDING: Although the risk of bleeding is minimal, it can happen. If you have any bleeding from the site, apply firm pressure above the puncture site for 10-15 minutes. If the bleeding does not stop, continue manual pressure and call 911 Contact your physician if: You develop a fever greater than 101 degrees Fahrenheit Your site becomes reddened or has any drainage You have an increase in pain or burning at the site or if a large knot forms at the site. If you experience chest pain, shortness of breath, dizziness, or extreme tiredness, stop the activity and rest. Please notify your physicians office if you experience any of these symptoms and they are not relieved by rest please call 911! - Diet and Activity Activity: increase activity as tolerated Diet: low salt diet (cardiac diet) Hospital course: Mr. Pereira is a 47 year old male with no past medical history who had presented from [place] with complaints of chest pain. Apparently the patient has been dealing with some cough, congestion, and fevers for the last 5 days or so. He experienced chest pain that was substernal with no radiation. He related that as 7 out of 10 in intensity. In the ER at [place] his workup showed elevated troponins at 4.36 and continued to rise in her facility to numbers as high as about 73. He was admitted to the hospitalist service with a consult to cardiology. His EKG was with no ST or T-wave changes. He was put on a heparin drip initially and was taken to have left heart catheterization. A drug- eluting stent was placed in the proximal circumflex. His troponin started to trend down. An echocardiogram came back unremarkable with an EF 55-60%. The patient was put on dual antiplatelet therapy with aspirin and Plavix. He was started on statin. We could not start him on a beta lisa and lisinopril due to borderline blood pressure. Cardiology was okay with him being discharged with follow-up with them and at that point I will evaluate starting those medications. While admitted the patient was noted to have elevated D dimers however he was never hypoxic and was never tachycardic and we had low suspicion for PE. No CTA was done. He was on room air throughout his stay. His d-dimer' s elevations is likely secondary to his cardiac event. He did have a chest x- ray done and was negative. There was a comment of pulmonary nodules seen on the chest x-ray however a CT chest was done without contrast which showed no pulmonary nodules. He did complain of a high-grade temperature at home however his workup here was negative for infectious etiology. Flu came back negative. He was never febrile here. The patient was discharged on 10/14/2017 in a stable condition. - Time Spent with Patient Total time spent providing and/or coordinating discharge services: Greater than 30 minutes - Constitutional Vitals: Temp Pulse Resp BP Pulse Ox 98.6 F 76 14 101/71 93 10/14/17 07:34 10/14/17 10:08 10/14/17 10:08 10/14/17 09:05 10/14/17 10:08 Exam: GEN: NAD CVS: RRR. S1, S2, No m/r/g RESP: CTAB ABD: Soft, NT, ND, +BS EXT: No edema. 2+ DP. No rashes NEURO: Nonfocal
[2017-10-14 12:03] VITALS: BP 99/71
--- NOTE | 2017-10-14 14:13 | Electrocardiograph Report ---
[address] [place] [address] Test Date: 2017-10-13 Pat Name: Milton Pereira Department: 2000 Room: 2N02 Gender: M Clinical Specialist Vascular: : 1970 Requested By: Kandi Sterling Order Number: [id number] Reading MD: Santo Hillman DO Measurements Intervals [place] Rate: 70 P: 66 CT: 151 QRS: 80 QRSD: 108 T: -69 QT: 413 QTc: 433 Interpretive Statements SINUS RHYTHM WITH SINUS ARRHYTHMIA INFERIOR MYOCARDIAL INFARCTION, OF INDETERMINATE AGE Electronically Signed On 10-14-2017 14:11:46 EST by Santo Hillman DO
== END 2017-10-14 14:04 | disposition home or self-care (01) | DRG 247 ==
LOC: 2NNU 15:29
PROVIDERS: ADMIT Nurse Practitioner Family; ATTEND Nurse Practitioner Family